=== PATIENT | male | born 1990 | race Caucasian/White ===

== ENCOUNTER 2019-02-22 21:56 | Emergency (ER) | payer SELFPAY ==
[2019-02-22] MEDS ORDERED: Proparacaine 0.5% Opth 15 ML BOT ONE (22:17)
[2019-02-22] MEDS ORDERED: Fluorescein Opthalmic Strip ONE (22:17)
[2019-02-22] MEDS ORDERED: HYDROcodone/Acetaminophen 5/325 mg Tablet ONE (22:45)
[2019-02-22] MEDS ORDERED: Adacel (T-DAP) 0.5 ML SYRINGE ONE (22:45)
[2019-02-22] MEDS ORDERED: Erythromycin Base 0.5% Oint 1 GM TUBE ONE (22:45)
== END 2019-02-22 23:28 | disposition home or self-care (01) ==
LOC: SCSER 21:56
DX: S05.01XA Injury of conjunctiva and corneal abrasion without foreign body, right eye, initial encounter (principal); H16.132 Photokeratitis, left eye; W22.8XXA Striking against or struck by other objects, initial encounter
CPT/HCPCS: 90471; 90715